=== PATIENT | female | born 1935 | race Caucasian/White ===

== ENCOUNTER → 2017-05-06 | Outpatient (CLI) | payer OTHER ==
--- NOTE | 2017-05-06 11:42 | CT ---
CT OF THE ABDOMEN WITHOUT CONTRAST HISTORY: Right upper quadrant pain Comparison: None Technique: Non contrast axial images of the abdomen were obtained. Dose reduction techniques including Automat ed Exposure Control (AEC) and adjustment of mA and kV were utlized. Findings: The heart is normal in size. There is no pericardial effusion. Lung bases are clear without focal c onsolidation, pleural effusion or pneumothorax. Please note the sensitivity for focal lesion detection within the solid abdominal viscera is diminis hed without the use of IV contrast. Liver and spleen are normal in size, and contour. No focal lesions. No ductal dilitation. At least 1 calcified gallstone. No evidence of gallbladder inflammation. Marked pancreatic atrophy. Adrenal gl ands are normal. Kidneys are without hydronephrosis or nephrolithiasis. No bowel obstruction or inflammation of the visualized bowel. Appendix is normal. No abnormal appear ing mesenteric or retroperitoneal lymph nodes. No free fluid or fluid collections. No aggressive osseous lesions. IMPRESSION: 1. Cholelithiasis without evidence of cholecystitis. Reported By:
== END | disposition home or self-care (01) | DRG 392 ==
LOC: RAD 10:58
PROVIDERS: ATTEND Nurse Practitioner
DX: R10.11 Right upper quadrant pain (principal); K80.80 Other cholelithiasis without obstruction
CPT/HCPCS: 74150